=== PATIENT | female | born 1965 | race Caucasian/White ===

== ENCOUNTER → 2018-08-20 | Day surgery (SDC) | payer OTHER ==
[~2018-08-20] MED LIST: ACETAMINOPHEN500 M1 PO; ACIDOPHILUS PR0.5 MG PO; AMITRIPTYLINE H25 M2 PO; CYMBALTA60 MG PO; DULERA 200 MCG/13 GM INH; LISINOPRIL10 MG PO; NEURONTIN 300300 M1 PO; OZEMPIC0.25 MG/0. SUBQ; SAVELLA50 MG PO; TROKENDI XR25 MG PO; ULTRAM 50MG TAB50 MG PO; ZYRTEC10 MG PO
--- NOTE | 2018-08-20 13:25 | EKG ---
[place] [address] ELECTROCARDIOGRAM REPORT Name: LOPEZTHOMAS Room: [facility]#: [id number] Admission: 08/20/18 Attend Phys: Kishan Lala DO Discharge: Date of : 61 Report #: [id number] THIS REPORT FOR: //name// [facility] Test Date: 2018-08-20 Test Time: 09:40:19 Pat Name: THOMAS LOPEZ Department: Room: Gender: F .Net Architect: : 1965 Requested By: Kishan Lala Order Number: [id number] Lucila MD: Migel Vicente Measurements Intervals [place] Rate: 83 P: 49 [place]: 156 QRS: 11 QRSD: 120 T: 39 QT: 392 QTc: 461 Interpretive Statements Sinus rhythm IVCD, consider atypical RBBB No previous ECG available for comparison Electronically Signed On 08-20-2018 13:25:41 CDT by Migel Vicente [email or web address] <ELECTRONICALLY SIGNED> By: Migel Vicente MD, [facility] 08/20/18 1325 0940 0940 Migel Vicente MD, FACC /EPI
--- NOTE | 2018-08-21 17:06 | PATH ---
[facility] [address] [place] [address] PATHOLOGY RPT PROCEDURE Name: THOMAS CARIAS Room: [facility].#: [id number] Admission: 08/20/18 Date of : 61 Discharge: Report #: [id number] Path Case #: [id number] [facility] Accession Number: [id number] . 01 Material submitted: . PART A: small bowel - SMALL BOWEL BIOPSY PART B: duodenum bulb - DUODENAL BULB BIOPSY PART C: esophagus - ESOPHAGEAL BIOPSY AT 30CM PART D: colon - RANDOM COLON BIOPSIES PART E: colon - 2 COLON POLYPS MID TRANSVERSE COLON. Modifiers: mid, transverse . 01 Clinical history: . Pre-OP DX: Chronic diarrhea, stool incontinence, family HX colon polyps, family HX, Crohn's disease. . Chronic esophagitis . 02 Diagnosis: A. Small bowel biopsy: - Benign small intestinal mucosa with mild non-specific active inflammation, negative for granulomas, viral inclusions and dysplasia. . B. Duodenal bulb biopsy: - Moderate non-specific active duodenitis, negative for granulomas, viral inclusions and dysplasia. See comment. . C. Esophageal biopsy at 30 cm: - Compatible with eosinophilic (allergic) esophagitis. See comment. . D. Random colon biopsies: - Benign colonic mucosa with several hyperplastic lymphoid follicles (Peyer's patches) and prominence of eosinophils, negative for cryptitis, granulomas and dysplasia. See comment. . E. Two colon polyps mid transverse colon: - Two tubular adenomas, negative for high grade dysplasia. See comment. LBQ/08/21/2018 . 02 Comment: The small bowel biopsy and duodenal bulb biopsy (A and B) do not show definitive evidence of chronic inflammation such as crypt distortion and or basal lymphoplasmacytosis although this is difficult to assess in association with the prominent, hyperplastic Gustabo's glands seen in the duodenal bulb biopsy. Likewise, there is no evidence of chronic colitis in the random colon biopsies (D) although there are conspicuous eosinophils in most of the mucosal fragments and thought to be increased in general although this can be variable [place] [address] PATHOLOGY RPT PROCEDURE Name: THOMAS CARIAS Room: [facility] [place]ogie#: [id number] Admission: 08/20/18 Date of : 61 Discharge: Report #: [id number] Path Case #: [id number] of biopsy (right versus left sided). The esophageal biopsy at 30 cm (C) shows benign squamous mucosa with basilar cell hyperplasia and abundant eosinophils, averaging more than 30 per high power field, also with some surface layering of eosinophils, compatible with eosinophilic (allergic) esophagitis. The relationship of this finding to the increased eosinophils in the random colon biopsies is unknown. Upon processing of the grossly identified single fragment in specimen E, there are noted to have been two separate fragments. (KIRSTIE/db; 08/21/2018) . 02 Electronically signed: . Huseyin White MD, Pathologist NPI- [id number] . 01 Gross description: . A. Received in formalin labeled "Thomas Carias, small bowel biopsy," are 3 segments of key soft tissue measuring 0.9 x 0.8 x 0.3 cm in aggregate dimensions and ranging from 0.3 to 0.6 cm in maximum dimension. The specimen is submitted entirely in cassette A1. . B. Received in formalin labeled "Thomas Carias, duodenal bulb BX," are 3 segments of key soft tissue measuring 0.8 x 0.6 x 0.2 cm in aggregate dimensions and ranging from 0.2 to 0.6 cm in maximum dimension. The specimen is submitted entirely in cassette B1. . C. Received in formalin labeled "Thomas Carias, esophageal biopsy at 30 cm," are 2 segments of key soft tissue measuring 0.7 x 0.2 x 0.2 cm in aggregate dimensions and ranging from 0.3 to 0.4 cm in maximum dimension. The specimen is submitted entirely in cassette C1. . D. Received in formalin labeled "Thomas Carias, random colon biopsies," are multiple segments of key soft tissue measuring 2.0 x 0.5 x 0.1 cm in aggregate dimensions. The specimen is filtered and entirely submitted in cassette D1 . E. Received in formalin labeled "Thomas Carias, polyp x2-mid transverse colon," and additionally labeled on the requisition as "polyps," is a single segment of key soft tissue measuring 0.4 cm in maximum dimension. The specimen is entirely submitted in cassette E1. After thorough examination of the specimen container, no additional tissue was recovered. (TSD; 08/20/2018) TOB/TOB . 02 Pathologist provided ICD-10: K52.9, K29.80, K20.0, D12.3 . 02 CPT . 763361, 052840, 851837, 909624, 906628 [place] [id number] PATHOLOGY RPT PROCEDURE Name: THOMAS CARIAS Room: [facility].#: [id number] Admission: 08/20/18 Date of : 61 Discharge: Report #: [id number] Path Case #: [id number] Specimen Comment: A courtesy copy of this report has been sent to Specimen Comment: [phone], . Specimen Comment: Report sent to / DR BAPTISTE Performed at: [address] [facility] [address], [place], [place] [id number] MD Zachary Hamilton MD Phone: [phone] Performed at: [address] [facility] [address] [id number] MD Huseyin White MD Phone: [phone]
== END | disposition home or self-care (01) ==
LOC: M.SUR 08:35
DX: D12.3 Benign neoplasm of transverse colon (principal); K29.80 Duodenitis without bleeding; K52.9 Noninfective gastroenteritis and colitis, unspecified; K21.0 Gastro-esophageal reflux disease with esophagitis; K63.89 Other specified diseases of intestine; M79.7 Fibromyalgia; F41.9 Anxiety disorder, unspecified; Z98.890 Other specified postprocedural states; Z86.73 Personal history of transient ischemic attack (TIA), and cerebral infarction without residual deficits; Z79.899 Other long term (current) drug therapy

== ENCOUNTER → 2021-02-09 | Day surgery (SDC) | payer OTHER ==
[~2021-02-09] MED LIST changes: +BASAGLAR K100 UNIT/1 SUBQ; +BUPROPION XL300 MG PO; +DICYCLOMINE HCL10 MG PO; +IBUPROFEN 200200 M1 PO; +LOMOTIL 2.5-0.01 TAB PO; +NEURONTIN300 MG PO; +PROAIR HFA8.5 GM INH; +SINGULAIR 10 MG10 M1 PO; +SPIRIVA INH; +SYMBICORT160 MCG/4. INH; +VIBERZI100 MG PO
--- NOTE | ~2021-02-09 | OP ---
[facility] [address] [place] [address] OPERATIVE REPORT Name: THOMAS LOPEZ Room: [facility].#: [id number] Admission: 02/09/21 Attend Phys: David Wong Discharge: Date of : 61 Report #: [id number] THIS REPORT FOR: cc: Camron Phillips MD, Anthony MD Patterson,David Worley MD ~ DATE OF SURGERY: 02/09/2021 PREOPERATIVE DIAGNOSIS: Left arm benign mass, 6 x 3 cm. POSTOPERATIVE DIAGNOSIS: Left arm benign mass, 6 x 3 cm. OPERATION: Excision of left arm mass, benign, 6 cm. SURGEON: David Wong MD ANESTHESIA: General. ESTIMATED BLOOD LOSS: Minimal. SPECIMENS: Left arm mass. DESCRIPTION OF PROCEDURE: After informed consent was obtained, the patient was brought to the operating room and placed supine. SCDs were placed and working, preoperative antibiotics were administered, general anesthesia was induced. The left arm was prepped and draped in the usual sterile fashion. A 7 cm incision was made in the left forearm on the volar surface. Dissection was made down through the subcutaneous tissue. There was a lipoma that was carefully dissected around with cautery. It was excised. It measured approximately 6 x 2 cm. The skin was then reapproximated with 4-0 Monocryl in running subcuticular fashion. Incisions were dressed with Steri-Strips and gauze. COMPLICATIONS: None. DISPOSITION: The patient was taken to recovery in satisfactory condition. By: [id number] Wong MD /nt
[2021-02-09 06:58] LABS: HEMATOCRIT 39.4 % (37.0-47.0); HEMOGLOBIN 12.8 gm/dL (12.0-15.0); MCH 27.3 pg (26.0-34.0); MCHC 32.4 g/dL (28.0-37.0); MCV 84.1 fL (80.0-100.0); MPV 9.6 fl. (7.2-11.1); RBC 4.69 mil/uL (4.20-5.00); RDW-CV 16.3 % (10.5-14.5); WBC 7.2 thou/uL (4.0-11.0)
[2021-02-09 07:25] LABS: CALCIUM 8.8 mg/dL (8.5-10.1); CREATININE 0.8 mg/dL (0.6-1.3); POTASSIUM 4.7 mmol/L (3.5-5.1)
--- NOTE | 2021-02-09 09:12 | EKG ---
[place] [address] ELECTROCARDIOGRAM REPORT Name: LOPEZTHOMAS Room: [facility]#: [id number] Admission: 02/09/21 Attend Phys: aDvid Harvey Discharge: Date of : 61 Date of Service: 02/09/21 0759 Report #: [id number] THIS REPORT FOR: //name// [facility] Test Date: 2021-02-09 Test Time: 07:59:26 Pat Name: THOMAS LOPEZ Department: Room: Gender: Feed Management Advisor: : 1965 Requested By: David Wong Order Number: [id number] Lucila MD: Reji Jackson Measurements Intervals [place] Rate: 73 P: 36 [place]: 149 QRS: 8 QRSD: 110 T: 34 QT: 377 QTc: 416 Interpretive Statements Sinus rhythm Incomplete right bundle branch block compared to ECG 08/20/2018 09:40:19 No significant changes noted Electronically Signed On 02-09-2021 9:12:39 [employer] by Reji Jackson [email or web address] <ELECTRONICALLY SIGNED> By: Reji Jackson MD, [facility] 02/09/21911 0759 0759 Reji Jackson MD, [facility] /EPI
--- NOTE | 2021-02-13 14:07 | PATH ---
[address] [address] PATHOLOGY RPT PROCEDURE Name: THOMAS LOPEZ Room: [facility].#: [id number] Admission: 02/09/21 Date of : 61 Discharge: Report #: [id number] Path Case #: [id number] [facility] Accession Number: [id number] . 01 Material submitted: . arm - LEFT ARM LIPOMA. Modifiers: left . 02 Diagnosis: Left arm: - Lipoma. . (KIRSTIE:mm; 02/13/2021) [facility] 02/13/2021 [facility] Local . 02 Electronically signed: . Huseyin White MD, Pathologist NPI- [id number] . 01 Gross description: . Fixative: Formalin Labeled: Left arm lipoma Specimen received: Multiple segments of yellow-key lobulated tissue Dimensions: 5.8 x 4.9 x 2.5 cm External surface: [place] surface: Pale key to yellow-key, lobulated . Respiratory Therapy Assistant sections are submitted in cassettes A1 and A2. (CAA; 02/10/2021) QAC/QAC 02/10/2021 0928 Local . 02 Pathologist provided ICD-10: D17.22 . 02 CPT . 978169 Specimen Comment: A courtesy copy of this report has been sent to [phone] Specimen Comment: [phone] Specimen Comment: Report sent to / DR BAPTISTE Performed at: [address], [place], [place] [id number] MD Jesse Alejandre MD Phone: [phone] Performed at: 02 [facility] [address], [place], [place] [id number] MD Huseyin White MD Phone: [phone]
== END | disposition home or self-care (01) ==
LOC: M.SUR 06:17
PROVIDERS: ATTEND Surgery
DX: D17.22 Benign lipomatous neoplasm of skin and subcutaneous tissue of left arm (principal); I10 Essential (primary) hypertension; E11.9 Type 2 diabetes mellitus without complications; M79.7 Fibromyalgia; K21.9 Gastro-esophageal reflux disease without esophagitis; F41.9 Anxiety disorder, unspecified; G47.30 Sleep apnea, unspecified; Z98.890 Other specified postprocedural states; Z79.899 Other long term (current) drug therapy; Z90.710 Acquired absence of both cervix and uterus; Z20.822 Contact with and (suspected) exposure to COVID-19; Z88.8 Allergy status to other drugs, medicaments and biological substances